=== PATIENT | female | born 2005 | race Caucasian/White ===

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

== ENCOUNTER 2023-05-02 12:49 | Emergency (ER) | payer OTHER, SELFPAY ==
--- OUTSIDE RECORDS SUMMARY | 2023-05-02 12:44 | XMS REPORT | Continuity of Care Document ---
:2005 Author Organization [facility] t Address [address] [facility] [address] [place] [address] Care Team Providers Name Role Phone ZAIDA LARA Primary Care Physician Unavailable ED COLVIN Attending Clinician Unavailable Pob, Adc Lab Main Attending Clinician Unavailable Thalia Lamas MD Attending Clinician THALIA ALMAS Attending Clinician Unavailable ZAIDA LARA Attending Clinician Unavailable Zaida Lara MD Attending Clinician Doctor Unassigned, [place] Attending Clinician Unavailable Steve Colin Attending Clinician Brittany Montelongo Attending Clinician BRITTANY FELIZ Attending Clinician Unavailable Unknown, Attending Attending Clinician Unavailable Afsaneh Tran MD Attending Clinician Destiny Light Attending Clinician EKATERINA PALACIO Attending Clinician Unavailable Ekaterina Palacio MD Attending Clinician Only, Adc Test Attending Clinician Unavailable Ed Colvin MD Attending Clinician STEVE STARKS Attending Clinician Unavailable NAMITA RODRÍGUEZ Attending Clinician Unavailable Namita Rodríguez MD Attending Clinician KYLE GRECO Attending Clinician Unavailable Kyle Pedraza Attending Clinician Nurse, Brenton Kay Attending Clinician Unavailable Akilah Emerson PA-C Attending Clinician Vaccine, Surrency Rahul Attending Clinician Unavailable JOSE DAVIS Attending Clinician Unavailable DESTINY PINZON Attending Clinician Unavailable Nathalie Horne MD Attending Clinician Unavailable KYLE GRECO Admitting Clinician Unavailable Payers Payer Name Policy Type Policy Number Effective Date Expiration Date Gene dan [facility] [id number] 2016 00:00:00 Problems Condition Condition Condition Status Onset Resolution Last Treating Co mments Source Name Details Category Date Date Treatment Clinician Date 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 Formattin g of this note might be different from the original. Added automatic ally from request for surgery [id number] Weakness Weakness Disease Active Unive rs of voice of voice 2 ity of 00:00: [place] 00 Medical Branch Dyspnea Dyspnea Disease Active 2020-08 Univers and and 1-24 ity of respirator [place] Medical abnormalit abnormalit Br [place] y y Family Family Disease Active Univers history of history of 8-06 it y of colon colon 00:00: [place] cancer in cancer in 00 [facility] abdulkadir mother mother Branch Asplenia Asplenia Disease Active Unive rs 8-06 ity of 00:00: 00 Medical Branch Weight Weight Disease Active Univers gain gain 3-03 ity of 00:00: [place] 00 Medical Branch Vaginal Vaginal Disease Active Univers irritation irritation 3-03 it y of 00:00: [place] 00 Medical Branch Chest wall Chest wall Disease Active U nivers asymmetry asymmetry 9-14 ity of 00:00: [place] [facility] Chest wall Chest wall Disease Active U nivers deformity deformity 5-11 ity of 00:00: [place] 00 Medical Branch ADHD ADHD Disease Active Univers (attention (attention 2-23 it y of deficit deficit 00:00: [place] hyperactiv hyperactiv 00 Me dical ity ity Branch disorder) disorder) Surgery, Surgery, Disease Active Unive rs elective elective 4-09 ity of 00:00: [place] 00 Medical Branch Spleen Spleen Disease Active Overview: Univer s laceration laceration 4-10 Form[place] ity of extending extending 00:00: [place] of this [place] into into 00 note Medical parenchyma parenchyma might be Branch w/open w/open different wound into wound into from the cavity cavity original. ICD10 Diagnosis Term Commissioning Manager Utility Laceration Laceration Disease Active Overview : Univers of liver of liver 4-10 Formattin ity of 00:00: g of this [place] 00 note Medical might be Branch different from the original. ICD10 Diagnosis Term Commissioning Manager Utility Acute Acute Disease Active Univers respirator respirator 4-10 it y of y failure y failure 00:[place]: [place] Allergies, Adverse Reactions, Alerts Allergy Allergy Status Severity Reaction(s) Onset Inactive Treating Comm ents Source Name Type Date Date Clinician NO KNOWN Drug Active Univers ALLERGIE Class ity of S [facility] Social History Social Habit Start Date Stop Date Quantity Comments Source History of Passive smoker University of tobacco use [place] [facility] History [facility] University o f Alcohol Comment [place] [facility] ical [facility] History [facility] University o f Alcohol Std [place] [facility] Drinks Branch History [facility] University o f Alcohol Binge [place] [facility] al Branch Exposure to 2022-09-25 2022-10-05 Not sure University of SARS-CoV-2 00:00:00 13:53:00 [facility] (event) Branch Alcohol intake 2022-10-05 2022-10-05 Lifetime University of 00:00:00 00:00:00 non-drinker [place] [facility] (finding) Branch History SDOH 2020-03-03 2020-03-03 1 University o f Alcohol Frequency 00:00:00 00:00:00 [facility] edical Branch Tobacco use and 2017-06-07 2017-06-07 Smokeless tobacco Un iversity of exposure 00:00:00 00:00:00 non-user [facility] Tobacco Comment 2013-09-09 2013-09-09 Guardian smokes Univ ersity of 00:00:00 00:00:00 [facility] Sex Assigned At [birth year] Universit y of 00:00:00 00:00:00 [facility] Smoking Status Start Date Stop Date Source Never smoked tobacco [facility] Medications Ordered Filled Start Stop Current Ordering Indication Dosage Frequency Signature Comments Components Source Medication Medication Date Date Medication? Clinician (SIG) Name Name fluconazole 2022- No [id number] 150mg Take 1 Univers (DIFLUCAN) 10-06- tablet by ity of 150 mg 00:00: 05:59 [place] tablet 00 :00 now for 1 Medical dose. Take Branch on 10/06/22. fluconazole 2022- No [id number] 150mg Take 1 Univers (DIFLUCAN) 10-06 tablet by ity of 150 mg 00:00: 05:59 mouth [place] tablet 00 :00 now for 1 Medical dose. Take Branch on 10/06/22. fluconazole 2022- No [id number] 150mg Take 1 Univers (DIFLUCAN) 10-06 tablet by ity of 150 mg 00:00: 05:59 mouth [place] tablet 00 :00 now for 1 Medical dose. Take Branch on 10/06/22. fluconazole 2022- No [id number] 150mg Take 1 Univers (DIFLUCAN) 10-06 tablet by ity of 150 mg 00:00: 05:59 mouth [place] tablet 00 :00 now for 1 Medical dose. Take Branch on 10/06/22. escitalopra Yes [id number] 20mg Take 1 Univers m oxalate 2-23 tablet by ity o f (LEXAPRO) 00:00: mouth [place] 20 mg 00 the Medical tablet morning. Branch levonorgest Yes [id number] 1{tbl} Take 1 Univers rel-ethinyl 2-23 tablet by ity of estradiol 00:00: [place] ([place] 00 the Medical 0.1-20 morning. Branch mg-mcg per tablet escitalopra 2023-0 Yes [id number] 20mg Take 1 Univers m oxalate 2-23 tablet by ity o f (LEXAPRO) 00:00: mouth [place] 20 mg 00 the Medical tablet morning. Branch levonorgest Yes [id number] 1{tbl} Take 1 Univers rel-ethinyl 2-23 tablet by ity of estradiol 00:00: [place] ([place] the Medical 0.1-20 morning. Branch mg-mcg per tablet escitalopra Yes [id number] 20mg Take 1 Univers m oxalate 2-23 tablet by ity o f (LEXAPRO) 00:00: mouth [place] 20 mg 00 the Medical tablet morning. Branch levonorgest Yes [id number] 1{tbl} Take 1 Univers rel-ethinyl 2-23 tablet by ity of estradiol 00:00: [place] ([place] the Medical 0.1-20 morning. Branch mg-mcg per tablet escitalopra Yes [id number] 20mg Take 1 Univers m oxalate 2-23 tablet by ity o f (LEXAPRO) 00:00: mouth [place] 20 mg 00 the Medical tablet morning. Branch levonorgest Yes [id number] 1{tbl} Take 1 Univers rel-ethinyl 2-23 tablet by ity of estradiol 00:00: [place] ([place] the Medical 0.1-20 morning. Branch mg-mcg per tablet etonogestre 2021-08 No 68mg 68 mg by U nivers L 68 mg 2-21 12-21 Subdermal ity of implant 16:41: 00:00 route once [place] 35 :00 now. Medical Branch etonogestre 2021-08- No 68mg 68 mg by U nivers L 68 mg 2-21 12-21 Subdermal ity of implant 16:41: 00:00 route once [place] 35 :00 now. Medical Branch escitalopra 2021-08 Yes [id number] 10mg Take 1 Univers m oxalate 2-21 tablet by ity o f 10 mg 00:00: mouth in [place] tablet 00 the Medical morning. Branch levonorgest 2021-08 Yes [id number] 1{tbl} Take 1 Univers rel-ethinyl 2-21 tablet by ity of estradiol 00:00: [place] ([place] 00 the Medical 0.1-20 morning. Branch mg-mcg per tablet escitalopra 2021-08 Yes [id number] 10mg Take 1 Univers m oxalate 2-21 tablet by ity o f 10 mg 00:00: mouth in [place] tablet 00 the Medical morning. Branch levonorgest 2021-08 Yes [id number] 1{tbl} Take 1 Univers rel-ethinyl 2-21 tablet by ity of estradiol 00:00: [place] ([place] 00 the Medical 0.1-20 morning. Branch mg-mcg per tablet escitalopra 2021-08 Yes [id number] 10mg Take 1 Univers m oxalate 2-21 tablet by ity o f 10 mg 00:00: mouth in [place] tablet 00 the Medical morning. Branch levonorgest 2021-08 Yes [id number] 1{tbl} Take 1 Univers rel-ethinyl 2-21 tablet by ity of estradiol 00:00: [place] ([place] 00 the Medical 0.-20 morning. Branch mg-mcg per tablet escitalopra 2021-08 Yes [id number] 10mg Take 1 Univers m oxalate 2-21 tablet by ity o f 10 mg 00:00: mouth in [place] tablet 00 the Medical morning. Branch levonorgest 2021-08 Yes [id number] 1{tbl} Take 1 Univers rel-ethinyl 2-21 tablet by ity of estradiol 00:00: [place] ([place] 00 the Medical 0.1-20 morning. Branch mg-mcg per tablet escitalopra 2021-08 Yes [id number] 10mg Take 1 Univers m oxalate 2-21 tablet by ity o f 10 mg 00:00: mouth in [place] tablet 00 the Medical morning. Branch levonorgest 2021-08 Yes [id number] 1{tbl} Take 1 Univers rel-ethinyl 2-21 tablet by ity of estradiol 00:00: mouth [place] ([place] 00 the Medical 0.1-20 morning. Branch mg-mcg per tablet escitalopra 2021-08- No [id number] 10mg Take 1 Univers m oxalate 2-03 10- tablet by ity of 10 mg 00:00: 00:00 mouth in [place] tablet 00 :00 the Medical morning. Branch levonorgest 2021-08- No [id number] 1{tbl} Take 1 Univers rel-ethinyl 2-03 10- tablet by it y of estradiol 00:00: 00:00 mouth in [facility] as (VIENVA) 00 :00 the Medical 0.1-20 morning. Branch mg-mcg per tablet escitalopra 2021-08- No [id number] 10mg Take 1 Univers m oxalate -03 10- tablet by ity of 10 mg 00:00: 00:00 mouth in [place] tablet 00 :00 the Medical morning. Branch levonorgest 2021-08- No [id number] 1{tbl} Take 1 Univers rel-ethinyl 10-03 tablet by it y of estradiol 00:00: 00:00 mouth in [facility] as (VIENVA) 00 :00 the Medical 0.1-20 morning. Branch mg-mcg per tablet escitalopra 2021-08- No [id number] 10mg Take 1 Univers m oxalate 10-03 tablet by ity of 10 mg 00:00: 00:00 mouth in [place] tablet 00 :00 the Medical morning. Branch levonorgest 2021-08- No [id number] 1{tbl} Take 1 Univers rel-ethinyl 10-03 tablet by it y of estradiol 00:00: 00:00 mouth in [facility] as (VIENVA) 00 :00 the Medical 0.1-20 morning. Branch mg-mcg per tablet bromphenira 2021-0 Yes [id number] 5mL Take 5 mL Univers mine-pseudo 4-29 by mouth 4 it y of ephedrine-D 00:00: (four[place] M (BROMFED 00 times Medical DM) 2-30-10 daily as Bran ch mg/5 mL needed for syrup Congestion /Allergies or Cough. bromphenira 2021-0 Yes [id number] 5mL Take 5 mL Univers mine-pseudo 4-29 by mouth 4 it y of ephedrine-D 00:00: (four[place] M (BROMFED 00 times Medical DM) 2-30-10 daily as Bran ch mg/5 mL needed for syrup Congestion /Allergies or Cough. bromphenira 2-0 Yes [id number] 5mL Take 5 mL Univers mine-pseudo 4-29 by mouth 4 it y of ephedrine-D 00:00: (four) [place] M (BROMFED 00 times Medical DM) 2-30-10 daily as Bran ch mg/5 mL needed for syrup Congestion /Allergies or Cough. bromphenira 2021-0 Yes [id number] 5mL Take 5 mL Univers mine-pseudo 4-29 by mouth 4 it y of ephedrine-D 00:00: (four) [place] M (BROMFED 00 times Medical DM) 2-30-10 daily as Bran ch mg/5 mL needed for syrup Congestion /Allergies or Cough. bromphenira 2021-0 Yes [id number] 5mL Take 5 mL Univers mine-pseudo 4-29 by mouth 4 it y of ephedrine-D 00:00: (four) [place] M (BROMFED 00 times Medical DM) 2-30-10 daily as Bran ch mg/5 mL needed for syrup Congestion /Allergies or Cough. bromphenira 2021-0 Yes [id number] 5mL Take 5 mL Univers mine-pseudo 4-29 by mouth 4 it y of ephedrine-D 00:00: (four) [place] M (BROMFED 00 times Medical DM) 2-30-10 daily as Bran ch mg/5 mL needed for syrup Congestion /Allergies or Cough. bromphenira 2-0 Yes [id number] 5mL Take 5 mL Univers mine-pseudo 4-29 by mouth 4 it y of ephedrine-D 00:00: (four) [place] M (BROMFED 00 times Medical DM) 2-30-10 daily as Bran ch mg/5 mL needed for syrup Congestion /Allergies or Cough. bromphenira 2022-0 Yes [id number] 5mL Take 5 mL Univers mine-pseudo 4-29 by mouth 4 it y of ephedrine-D 00:00: (four) [place] M (BROMFED 00 times Medical DM) 2-30-10 daily as Bran ch mg/5 mL needed for syrup Congestion /Allergies or Cough. bromphenira 2022-0 Yes [id number] 5mL Take 5 mL Univers mine-pseudo 4-29 by mouth 4 it y of ephedrine-D 00:00: (four) [place] M (BROMFED 00 times Medical DM) 2-30-10 daily as Bran ch mg/5 mL needed for syrup Congestion /Allergies or Cough. bromphenira 2-0 Yes [id number] 5mL Take 5 mL Univers mine-pseudo 4-29 by mouth 4 it y of ephedrine-D 00:00: (four) [place] M (BROMFED 00 times Medical DM) 2-30-10 daily as Bran ch mg/5 mL needed for syrup Congestion /Allergies or Cough. bromphenira 2021-0 Yes [id number] 5mL Take 5 mL Univers mine-pseudo 4-29 by mouth 4 it y of ephedrine-D 00:00: (four) [place] M (BROMFED 00 times Medical DM) 2-30-10 daily as Bran ch mg/5 mL needed for syrup Congestion /Allergies or Cough. bromphenira 2021-0 Yes [id number] 5mL Take 5 mL Univers mine-pseudo 4-29 by mouth 4 it y of ephedrine-D 00:00: (four) [place] M (BROMFED 00 times Medical DM) 2-30-10 daily as Bran ch mg/5 mL needed for syrup Congestion /Allergies or Cough. bromphenira 2021-0 Yes [id number] 5mL Take 5 mL Univers mine-pseudo 4-29 by mouth 4 it y of ephedrine-D 00:00: (four) [place] M (BROMFED 00 times Medical DM) 2-30-10 daily as Bran ch mg/5 mL needed for syrup Congestion /Allergies or Cough. bromphenira 2-0 Yes [id number] 5mL Take 5 mL Univers mine-pseudo 4-29 by mouth 4 it y of ephedrine-D 00:00: (four) [place] M (BROMFED 00 times Medical DM) 2-30-10 daily as Bran ch mg/5 mL needed for syrup Congestion /Allergies or Cough. bromphenira 2022-0 Yes [id number] 5mL Take 5 mL Univers mine-pseudo 4-29 by mouth 4 it y of ephedrine-D 00:00: (four) [place] M (BROMFED 00 times Medical DM) 2-30-10 daily as Bran ch mg/5 mL needed for syrup Congestion /Allergies or Cough. bromphenira 2-0 Yes [id number] 5mL Take 5 mL Univers mine-pseudo 4-29 by mouth 4 it y of ephedrine-D 00:00: (four) [place] M (BROMFED 00 times Medical DM) 2-30-10 daily as Bran ch mg/5 mL needed for syrup Congestion /Allergies or Cough. bromphenira 2021-0 Yes [id number] 5mL Take 5 mL Univers mine-pseudo 4-29 by mouth 4 it y of ephedrine-D 00:00: (four) [place] M (BROMFED 00 times Medical DM) 2-30-10 daily as Bran ch mg/5 mL needed for syrup Congestion /Allergies or Cough. bromphenira 2021-0 Yes [id number] 5mL Take 5 mL Univers mine-pseudo 4-29 by mouth 4 it y of ephedrine-D 00:00: (four[place] M (BROMFED 00 times Medical DM) 2-30-10 daily as Bran ch mg/5 mL needed for syrup Congestion /Allergies or Cough. bromphenira 2021-0 Yes [id number] 5mL Take 5 mL Univers mine-pseudo 4-29 by mouth 4 it y of ephedrine-D 00:00: (four) [place] M (BROMFED 00 times Medical DM) 2-30-10 daily as Bran ch mg/5 mL needed for syrup Congestion /Allergies or Cough. bromphenira 2021-0 Yes [id number] 5mL Take 5 mL Univers mine-pseudo 4-29 by mouth 4 it y of ephedrine-D 00:00: (four) [place] M (BROMFED 00 times Medical DM) 2-30-10 daily as Bran ch mg/5 mL needed for syrup Congestion /Allergies or Cough. bromphenira 2022-0 Yes [id number] 5mL Take 5 mL Univers mine-pseudo 4-29 by mouth 4 it y of ephedrine-D 00:00: (four) [place] M (BROMFED 00 times Medical DM) 2-30-10 daily as Bran ch mg/5 mL needed for syrup Congestion /Allergies or Cough. bromphenira 2022-0 Yes [id number] 5mL Take 5 mL Univers mine-pseudo 4-29 by mouth 4 it y of ephedrine-D 00:00: (four) [place] M (BROMFED 00 times Medical DM) 2-30-10 daily as Bran ch mg/5 mL needed for syrup Congestion /Allergies or Cough. doxycycline 2021- No [id number] 100mg Take 1 Univers hyclate 100 4-29 05-07 tablet by it y of mg tablet 00:00: 04:59 mouth 2 [place] 00 :00 (two) Medical times Branch daily for 7 days. doxycycline 2021- No [id number] 100mg Take 1 Univers hyclate 100 4-29 05-07 tablet by it y of mg tablet 00:00: 04:59 mouth 2 [place] 00 :00 (two) Medical times Branch daily for 7 days. doxycycline 2021- No [id number] 100mg Take 1 Univers hyclate 100 4-29 05-07 tablet by it y of mg tablet 00:00: 04:59 mouth 2 [place] 00 :00 (two) Medical times Branch daily for 7 days. doxycycline 2021- No [id number] 100mg Take 1 Univers hyclate 100 4-29 05-07 tablet by it y of mg tablet 00:00: 04:59 mouth 2 [place] 00 :00 (two) Medical times Branch daily for 7 days. doxycycline 2021- No [id number] 100mg Take 1 Univers hyclate 100 4-29 05-07 tablet by it y of mg tablet 00:00: 04:59 mouth 2 [place] 00 :00 (two) Medical times Branch daily for 7 days. doxycycline 2021- No [id number] 100mg Take 1 Univers hyclate 100 4-29 05-07 tablet by it y of mg tablet 00:00: 04:59 mouth 2 [place] 00 :00 (two) Medical times Branch daily for 7 days. doxycycline 2021- No [id number] 100mg Take 1 Univers hyclate 100 4-29 05-07 tablet by it y of mg tablet 00:00: 04:59 mouth 2 [place] 00 :00 (two) Medical times Branch daily for 7 days. escitalopra 2022-0 Yes [id number] 10mg Take 1 Univers m oxalate 4-22 tablet by ity o f 10 mg 00:00: mouth [place] tablet 00 daily. Medical Branch escitalopra Yes [id number] 10mg Take 1 Univers m oxalate 4-22 tablet by ity o f 10 mg 00:00: mouth [place] tablet 00 daily. Medical Branch escitalopra Yes [id number] 10mg Take 1 Univers m oxalate 4-22 tablet by ity o f 10 mg 00:00: mouth [place] tablet 00 daily. Medical Branch escitalopra Yes [id number] 10mg Take 1 Univers m oxalate 4-22 tablet by ity o f 10 mg 00:00: mouth [place] tablet 00 daily. Medical Branch escitalopra Yes [id number] 10mg Take 1 Univers m oxalate 4-22 tablet by ity o f 10 mg 00:00: mouth [place] tablet 00 daily. Medical Branch escitalopra Yes [id number] 10mg Take 1 Univers m oxalate 4-22 tablet by ity o f 10 mg 00:00: mouth [place] tablet 00 daily. Medical Branch escitalopra Yes [id number] 10mg Take 1 Univers m oxalate 4-22 tablet by ity o f 10 mg 00:00: mouth [place] tablet 00 daily. Medical Branch escitalopra Yes [id number] 10mg Take 1 Univers m oxalate 4-22 tablet by ity o f 10 mg 00:00: mouth [place] tablet 00 daily. Medical Branch escitalopra Yes [id number] 10mg Take 1 Univers m oxalate 4-22 tablet by ity o f 10 mg 00:00: mouth [place] tablet 00 daily. Medical Branch escitalopra Yes [id number] 10mg Take 1 Univers m oxalate 4-22 tablet by ity o f 10 mg 00:00: mouth [place] tablet 00 daily. Medical Branch escitalopra Yes [id number] 10mg Take 1 Univers m oxalate 4-22 tablet by ity o f 10 mg 00:00: mouth [place] tablet 00 daily. [facility] Branch escitalopra Yes [id number] 10mg Take 1 Univers m oxalate 4-22 tablet by ity o f 10 mg 00:00: mouth [place] tablet 00 daily. [facility] Branch escitalopra 2022-0 Yes [id number] 10mg Take 1 Univers m oxalate 4-22 tablet by ity o f 10 mg 00:00: mouth [place] tablet 00 daily. Medical Branch escitalopra 2021-0 2- No [id number] 10mg Take 1 Univers m oxalate 4-22 12-21 tablet by ity of 10 mg 00:00: 00:00 mouth [place] tablet 00 :00 daily. Medical Branch escitalopra 2021-0 2- No [id number] 10mg Take 1 Univers m oxalate 4-22 12-21 tablet by ity of 10 mg 00:00: 00:00 mouth [place] tablet 00 :00 daily. Medical Branch albuterol 2-0 Yes 2.5mg Inhale 2.5 U nivers 2.5 mg /3 4-21 mg. ity of mL (0.083 00:00: [place] %) 00 Medical nebulizer Branch solution albuterol 2-0 Yes 2.5mg Inhale 2.5 U nivers 2.5 mg /3 4-21 mg. ity of mL (0.083 00:00: [place] %) 00 Medical nebulizer Branch solution albuterol 2-0 Yes 2.5mg Inhale 2.5 U nivers 2.5 mg /3 4-21 mg. ity of mL (0.083 00:00: [place] %) 00 Medical nebulizer Branch solution albuterol 2-0 Yes 2.5mg Inhale 2.5 U nivers 2.5 mg /3 4-21 mg. ity of mL (0.083 00:00: [place] %) 00 Medical nebulizer Branch solution albuterol 2-0 Yes 2.5mg Inhale 2.5 U nivers 2.5 mg /3 4-21 mg. ity of mL (0.083 00:00: [place] %) 00 Medical nebulizer Branch solution albuterol 2-0 Yes 2.5mg Inhale 2.5 U nivers 2.5 mg /3 4-21 mg. ity of mL (0.083 00:00: [place] %) 00 Medical nebulizer Branch solution albuterol 2022-0 Yes 2.5mg Inhale 2.5 U nivers 2.5 mg /3 4-21 mg. ity of mL (0.083 00:00: [place] %) 00 Medical nebulizer Branch solution albuterol 2022-0 Yes 2.5mg Inhale 2.5 U nivers 2.5 mg /3 4-21 mg. ity of mL (0.083 00:00: [place] %) 00 Medical nebulizer Branch solution albuterol 2022-0 Yes 2.5mg Inhale 2.5 U nivers 2.5 mg /3 4-21 mg. ity of mL (0.083 00:00: [place] %) 00 Medical nebulizer Branch solution albuterol 2022-0 Yes 2.5mg Inhale 2.5 U nivers 2.5 mg /3 4-21 mg. ity of mL (0.083 00:00: [place] %) 00 Medical nebulizer Branch solution albuterol 2022-0 Yes 2.5mg Inhale 2.5 U nivers 2.5 mg /3 4-21 mg. ity of mL (0.083 00:00: [place] %) 00 Medical nebulizer Branch solution albuterol 2022-0 Yes 2.5mg Inhale 2.5 U nivers 2.5 mg /3 4-21 mg. ity of mL (0.083 00:00: [place] %) 00 Medical nebulizer Branch solution albuterol 2022-0 Yes 2.5mg Inhale 2.5 U nivers 2.5 mg /3 4-21 mg. ity of mL (0.083 00:00: [place] %) 00 Medical nebulizer Branch solution albuterol 2022-0 Yes 2.5mg Inhale 2.5 U nivers 2.5 mg /3 4-21 mg. ity of mL (0.083 00:00: [place] %) 00 Medical nebulizer Branch solution albuterol 2022-0 Yes 2.5mg Inhale 2.5 U nivers 2.5 mg /3 4-21 mg. ity of mL (0.083 00:00: [place] %) 00 Medical nebulizer Branch solution albuterol 2022-0 Yes 2.5mg Inhale 2.5 U nivers 2.5 mg /3 4-21 mg. ity of mL (0.083 00:00: [place] %) 00 Medical nebulizer Branch solution albuterol 2022-0 Yes 2.5mg Inhale 2.5 U nivers 2.5 mg /3 4-21 mg. ity of mL (0.083 00:00: [place] %) 00 Medical nebulizer Branch solution albuterol 2022-0 Yes 2.5mg Inhale 2.5 U nivers 2.5 mg /3 4-21 mg. ity of mL (0.083 00:00: [place] %) 00 Medical nebulizer Branch solution albuterol 2022-0 Yes 2.5mg Inhale 2.5 U nivers 2.5 mg /3 4-21 mg. ity of mL (0.083 00:00: [place] %) 00 Medical nebulizer Branch solution albuterol 2022-0 Yes 2.5mg Inhale 2.5 U nivers 2.5 mg /3 4-21 mg. ity of mL (0.083 00:00: [place] %) 00 Medical nebulizer Branch solution albuterol 2022-0 Yes 2.5mg Inhale 2.5 U nivers 2.5 mg /3 4-21 mg. ity of mL (0.083 00:00: [place] %) 00 Medical nebulizer Branch solution albuterol 2022-0 Yes 2.5mg Inhale 2.5 U nivers 2.5 mg /3 4-21 mg. ity of mL (0.083 00:00: [place] %) 00 Medical nebulizer Branch solution levonorgest 2-0 Yes [id number] 1{tbl} Take 1 Univers rel-ethinyl 4-08 tablet by ity of estradiol 00:00: mouth (VIENVA) 00 daily. Medical 0.1-20 Branch mg-mcg per tablet levonorgest 2-0 Yes [id number] 1{tbl} Take 1 Univers rel-ethinyl 4-08 tablet by ity of estradiol 00:00: mouth [place] (VIENVA) 00 daily. Medical 0.1-20 Branch mg-mcg per tablet levonorgest 2-0 Yes [id number] 1{tbl} Take 1 Univers rel-ethinyl 4-08 tablet by ity of estradiol 00:00: mouth [place] (VIENVA) 00 daily. Medical 0.1-20 Branch mg-mcg per tablet levonorgest 2-0 Yes [id number] 1{tbl} Take 1 Univers rel-ethinyl 4-08 tablet by ity of estradiol 00:00: mouth [place] (VIENVA) 00 daily. Medical 0.1-20 Branch mg-mcg per tablet levonorgest 2021-0 Yes [id number] 1{tbl} Take 1 Univers rel-ethinyl 4-08 tablet by ity of estradiol 00:00: mouth [place] (VIENVA) 00 daily. Medical 0.1-20 Branch mg-mcg per tablet levonorgest 2021-0 Yes [id number] 1{tbl} Take 1 Univers rel-ethinyl 4-08 tablet by ity of estradiol 00:00: mouth [place] (VIENVA) 00 daily. Medical 0.1-20 Branch mg-mcg per tablet levonorgest 0 Yes [id number] 1{tbl} Take 1 Univers rel-ethinyl 4-08 tablet by ity of estradiol 00:00: mouth [place] (VIENVA) 00 daily. Medical 0.1-20 Branch mg-mcg per tablet levonorgest 2021-0 Yes [id number] 1{tbl} Take 1 Univers rel-ethinyl 4-08 tablet by ity of estradiol 00:00: mouth [place] (VIENVA) 00 daily. Medical 0.1-20 Branch mg-mcg per tablet levonorgest 0 Yes [id number] 1{tbl} Take 1 Univers rel-ethinyl 4-08 tablet by ity of estradiol 00:00: mouth [place] (VIENVA) 00 daily. Medical 0.1-20 Branch mg-mcg per tablet levonorgest 2021-0 Yes [id number] 1{tbl} Take 1 Univers rel-ethinyl 4-08 tablet by ity of estradiol 00:00: mouth [place] (VIENVA) 00 daily. Medical 0.1-20 Branch mg-mcg per tablet levonorgest 2021-0 Yes [id number] 1{tbl} Take 1 Univers rel-ethinyl 4-08 tablet by ity of estradiol 00:00: mouth [place] (VIENVA) 00 daily. Medical 0.1-20 Branch mg-mcg per tablet levonorgest 2021-0 Yes [id number] 1{tbl} Take 1 Univers rel-ethinyl 4-08 tablet by ity of estradiol 00:00: mouth [place] (VIENVA) 00 daily. Medical 0.1-20 Branch mg-mcg per tablet levonorgest 2021-0 Yes [id number] 1{tbl} Take 1 Univers rel-ethinyl 4-08 tablet by ity of estradiol 00:00: mouth [place] (VIENVA) 00 daily. Medical 0.1-20 Branch mg-mcg per tablet levonorgest 2021-0 2021- No [id number] 1{tbl} Take 1 Univers rel-ethinyl 4-08 12-21 tablet by it y of estradiol 00:00: 00:00 mouth [place] (VIENVA) 00 :00 daily. Medical 0.1-20 Branch mg-mcg per tablet levonorgest 2021-0 2021- No [id number] 1{tbl} Take 1 Univers rel-ethinyl 4-08 12-21 tablet by it y of estradiol 00:00: 00:00 mouth [place] (VIENVA) 00 :00 daily. Medical 0.1-20 Branch mg-mcg per tablet ibuprofen 2021-0 Yes [id number] 600mg Take 1 Univers 600 mg 3-06 tablet by ity of tablet 00:00: mouth [place] 00 every 6 Medical (six) Branch hours as needed for Pain (scale 4-6). ibuprofen 2021-0 Yes [id number] 600mg Take 1 Univers 600 mg 3-06 tablet by ity of tablet 00:00: mouth [place] 00 every 6 Medical (six) Branch hours as needed for Pain (scale 4-6). ibuprofen 2021-0 Yes [id number] 600mg Take 1 Univers 600 mg 3-06 tablet by ity of tablet 00:00: mouth [place] 00 every 6 Medical (six) Branch hours as needed for Pain (scale 4-6). ibuprofen 2021-0 Yes [id number] 600mg Take 1 Univers 600 mg 3-06 tablet by ity of tablet 00:00: mouth [place] 00 every 6 Medical (six) Branch hours as needed for Pain (scale 4-6). ibuprofen 2021-0 Yes [id number] 600mg Take 1 Univers 600 mg 3-06 tablet by ity of tablet 00:00: mouth [place] 00 every 6 Medical (six) Branch hours as needed for Pain (scale 4-6). ibuprofen 2022-0 Yes [id number] 600mg Take 1 Univers 600 mg 3-06 tablet by ity of tablet 00:00: mouth [place] 00 every 6 Medical (six) Branch hours as needed for Pain (scale 4-6). ibuprofen 2022-0 Yes [id number] 600mg Take 1 Univers 600 mg 3-06 tablet by ity of tablet 00:00: mouth [place] 00 every 6 Medical (six) Branch hours as needed for Pain (scale 4-6). ibuprofen 2022-0 Yes [id number] 600mg Take 1 Univers 600 mg 3-06 tablet by ity of tablet 00:00: mouth [place] 00 every 6 Medical (six) Branch hours as needed for Pain (scale 4-6). ibuprofen 2022-0 Yes [id number] 600mg Take 1 Univers 600 mg 3-06 tablet by ity of tablet 00:00: mouth [place] 00 every 6 Medical (six) Branch hours as needed for Pain (scale 4-6). ibuprofen 2022-0 Yes [id number] 600mg Take 1 Univers 600 mg 3-06 tablet by ity of tablet 00:00: mouth [place] 00 every 6 Medical (six) Branch hours as needed for Pain (scale 4-6). ibuprofen 2022-0 Yes [id number] 600mg Take 1 Univers 600 mg 3-06 tablet by ity of tablet 00:00: mouth [place] 00 every 6 Medical (six) Branch hours as needed for Pain (scale 4-6). ibuprofen 2022-0 Yes [id number] 600mg Take 1 Univers 600 mg 3-06 tablet by ity of tablet 00:00: mouth [place] 00 every 6 Medical (six) Branch hours as needed for Pain (scale 4-6). ibuprofen 2022-0 Yes [id number] 600mg Take 1 Univers 600 mg 3-06 tablet by ity of tablet 00:00: mouth [place] 00 every 6 Medical (six) Branch hours as needed for Pain (scale 4-6). ibuprofen 2022-0 Yes [id number] 600mg Take 1 Univers 600 mg 3-06 tablet by ity of tablet 00:00: mouth [place] 00 every 6 Medical (six) Branch hours as needed for Pain (scale 4-6). ibuprofen 2022-0 Yes [id number] 600mg Take 1 Univers 600 mg 3-06 tablet by ity of tablet 00:00: mouth [place] 00 every 6 Medical (six) Branch hours as needed for Pain (scale 4-6). ibuprofen 202-0 Yes [id number] 600mg Take 1 Univers 600 mg 3-06 tablet by ity of tablet 00:00: mouth [place] 00 every 6 Medical (six) Branch hours as needed for Pain (scale 4-6). ibuprofen 202-0 Yes [id number] 600mg Take 1 Univers 600 mg 3-06 tablet by ity of tablet 00:00: mouth [place] 00 every 6 Medical (six) Branch hours as needed for Pain (scale 4-6). ibuprofen 2021-0 Yes [id number] 600mg Take 1 Univers 600 mg 3-06 tablet by ity of tablet 00:00: mouth [place] 00 every 6 Medical (six) Branch hours as needed for Pain (scale 4-6). ibuprofen 202-0 Yes [id number] 600mg Take 1 Univers 600 mg 3-06 tablet by ity of tablet 00:00: mouth [place] 00 every 6 Medical (six) Branch hours as needed for Pain (scale 4-6). ibuprofen 2021-0 Yes [id number] 600mg Take 1 Univers 600 mg 3-06 tablet by ity of tablet 00:00: mouth [place] 00 every 6 Medical (six) Branch hours as needed for Pain (scale 4-6). ibuprofen 2021-0 Yes [id number] 600mg Take 1 Univers 600 mg 3-06 tablet by ity of tablet 00:00: mouth [place] 00 every 6 Medical (six) Branch hours as needed for Pain (scale 4-6). ibuprofen 2021-0 Yes [id number] 600mg Take 1 Univers 600 mg 3-06 tablet by ity of tablet 00:00: mouth [place] 00 every 6 Medical (six) Branch hours as needed for Pain (scale 4-6). ibuprofen 2021-0 Yes [id number] 600mg Take 1 Univers 600 mg 3-06 tablet by ity of tablet 00:00: mouth [place] 00 every 6 Medical (six) Branch hours as needed for Pain (scale 4-6). amoxicillin 2021-0 2022- No [id number] 1{tbl} Take 1 Univers -clavulanat 3-03 03-14 tablet by it y of e 00:00: 04:59 mouth 2 [place] (AUGMENTIN) 00 :00 (two) Medical 875-125 mg times Branch per tablet daily for 10 days. levonorgest 2021- No [id number] 1{tbl} Take 1 Univers rel-ethinyl 2-25 04-08 tablet by it y of estradiol 00:00: 00:00 mouth [place] 0.1-20 00 :00 daily. Medical mg-mcg per Branch tablet escitalopra 2021- No [id number] 10mg Take 1 Univers m oxalate 2-21 - tablet by ity of 10 mg 00:00: 00:00 mouth [place] tablet 00 :00 daily. Medical Branch cetirizine 2020-08 Yes 10mg Take 10 mg U nivers 10 mg 2-21 by mouth. ity of tablet 00:00: [place] [facility] fluticasone 2020-08 Yes 50ug Use 50 mcg Univers propionate 2-21 in each ity of 50 00:00: nostril. [place] mcg/actuati Medical on nasal Branch spray cetirizine 2020-08 Yes 10mg Take 10 mg U nivers 10 mg 2-21 by mouth. ity of tablet 00:00: [place] [facility] fluticasone 2020-08 Yes 50ug Use 50 mcg Univers propionate 2-21 in each ity of 50 00:00: nostril. [place] mcg/actuati Medical on nasal Branch spray cetirizine 2020-08 Yes 10mg Take 10 mg U nivers 10 mg 2-21 by mouth. ity of tablet 00:00: [place] [facility] fluticasone 2020-08 Yes 50ug Use 50 mcg Univers propionate 2-21 in each ity of 50 00:00: nostril. [place] mcg/actuati Medical on nasal Branch spray cetirizine 2020-08 Yes 10mg Take 10 mg U nivers 10 mg 2-21 by mouth. ity of tablet 00:00: [place] [facility] fluticasone 2020-08 Yes 50ug Use 50 mcg Univers propionate 2-21 in each ity of 50 00:00: nostril. [place] mcg/actuati Medical on nasal Branch spray cetirizine 2020-08 Yes 10mg Take 10 mg U nivers 10 mg 2-21 by mouth. ity of tablet 00:00: [place] [facility] fluticasone 2021-1 Yes 50ug Use 50 mcg Univers propionate 2-21 in each ity of 50 00:00: nostril. [place] mcg/actuati Medical on nasal Branch spray cetirizine 2020-08 Yes 10mg Take 10 mg U nivers 10 mg 2-21 by mouth. ity of tablet 00:00: [place] [facility] fluticasone 2020-08 Yes 50ug Use 50 mcg Univers propionate 2-21 in each ity of 50 00:00: nostril. [place] mcg/actuati Medical on nasal Branch spray cetirizine 2020-08 Yes 10mg Take 10 mg U nivers 10 mg 2-21 by mouth. ity of tablet 00:00: [place] [facility] fluticasone 2020-08 Yes 50ug Use 50 mcg Univers propionate 2-21 in each ity of 50 00:00: nostril. [place] mcg/actuati Medical on nasal Branch spray cetirizine 2020-08 Yes 10mg Take 10 mg U nivers 10 mg 2-21 by mouth. ity of tablet 00:00: [place] [facility] fluticasone 2020-08 Yes 50ug Use 50 mcg Univers propionate 2-21 in each ity of 50 00:00: nostril. [place] mcg/actuati Medical on nasal Branch spray cetirizine 2020-08 Yes 10mg Take 10 mg U nivers 10 mg 2-21 by mouth. ity of tablet 00:00: [place] [facility] fluticasone 2020-08 Yes 50ug Use 50 mcg Univers propionate 2-21 in each ity of 50 00:00: nostril. [place] mcg/actuati Medical on nasal Branch spray cetirizine 2020-08 Yes 10mg Take 10 mg U nivers 10 mg 2-21 by mouth. ity of tablet 00:00: [place] [facility] fluticasone 2020-08 Yes 50ug Use 50 mcg Univers propionate 2-21 in each ity of 50 00:00: nostril. [place] mcg/actuati Medical on nasal Branch spray cetirizine 2020-08 Yes 10mg Take 10 mg U nivers 10 mg 2-21 by mouth. ity of tablet 00:00: [place] [facility] fluticasone 2020-08 Yes 50ug Use 50 mcg Univers propionate 2-21 in each ity of 50 00:00: nostril. [place] mcg/actuati Medical on nasal Branch spray cetirizine 2020-08 Yes 10mg Take 10 mg U nivers 10 mg 2-21 by mouth. ity of tablet 00:00: [place] [facility] fluticasone 2020-08 Yes 50ug Use 50 mcg Univers propionate 2-21 in each ity of 50 00:00: nostril. [place] mcg/actuati Medical on nasal Branch spray cetirizine 2020-08 Yes 10mg Take 10 mg U nivers 10 mg 2-21 by mouth. ity of tablet 00:00: [place] [facility] fluticasone 2020-08 Yes 50ug Use 50 mcg Univers propionate 2-21 in each ity of 50 00:00: nostril. [place] mcg/actuati Medical on nasal Branch spray cetirizine 2020-08 Yes 10mg Take 10 mg U nivers 10 mg 2-21 by mouth. ity of tablet 00:00: [place] [facility] fluticasone 2020-08 Yes 50ug Use 50 mcg Univers propionate 2-21 in each ity of 50 00:00: nostril. [place] mcg/actuati Medical on nasal Branch spray cetirizine 2020-08 Yes 10mg Take 10 mg U nivers 10 mg 2-21 by mouth. ity of tablet 00:00: [place] [facility] fluticasone 2020-08 Yes 50ug Use 50 mcg Univers propionate 2-21 in each ity of 50 00:00: nostril. [place] mcg/actuati Medical on nasal Branch spray cetirizine 2020-08 Yes 10mg Take 10 mg U nivers 10 mg 2-21 by mouth. ity of tablet 00:00: [place] [facility] fluticasone 2020-08 Yes 50ug Use 50 mcg Univers propionate 2-21 in each ity of 50 00:00: nostril. [place] mcg/actuati Medical on nasal Branch spray cetirizine 2020-08 Yes 10mg Take 10 mg U nivers 10 mg 2-21 by mouth. ity of tablet 00:00: [place] [facility] fluticasone 2020-08 Yes 50ug Use 50 mcg Univers propionate 2-21 in each ity of 50 00:00: nostril. [place] mcg/actuati Medical on nasal Branch spray cetirizine 2020-08 Yes 10mg Take 10 mg U nivers 10 mg 2-21 by mouth. ity of tablet 00:00: [place] [facility] fluticasone 2020-08 Yes 50ug Use 50 mcg Univers propionate 2-21 in each ity of 50 00:00: nostril. [place] mcg/actuati Medical on nasal Branch spray cetirizine 2020-08 Yes 10mg Take 10 mg U nivers 10 mg 2-21 by mouth. ity of tablet 00:00: [place] [facility] fluticasone 2020-08 Yes 50ug Use 50 mcg Univers propionate 2-21 in each ity of 50 00:00: nostril. [place] mcg/actuati Medical on nasal Branch spray cetirizine 2020-08 Yes 10mg Take 10 mg U nivers 10 mg 2-21 by mouth. ity of tablet 00:00: [place] [facility] fluticasone 2020-08 Yes 50ug Use 50 mcg Univers propionate 2-21 in each ity of 50 00:00: nostril. [place] mcg/actuati Medical on nasal Branch spray cetirizine 2020-08 Yes 10mg Take 10 mg U nivers 10 mg 2-21 by mouth. ity of tablet 00:00: [place] [facility] fluticasone 2020-08 Yes 50ug Use 50 mcg Univers propionate 2-21 in each ity of 50 00:00: nostril. [place] mcg/actuati Medical on nasal Branch spray cetirizine 2020-08 Yes 10mg Take 10 mg U nivers 10 mg 2-21 by mouth. ity of tablet 00:00: [place] [facility] fluticasone 2020-08 Yes 50ug Use 50 mcg Univers propionate 2-21 in each ity of 50 00:00: nostril. [place] mcg/actuati Medical on nasal Branch spray cetirizine 2020-08 Yes 10mg Take 10 mg U nivers 10 mg 2-21 by mouth. ity of tablet 00:00: [place] [facility] fluticasone 2020-08 Yes 50ug Use 50 mcg Univers propionate 2-21 in each ity of 50 00:00: nostril. [facility]/actuati Medical on nasal Branch spray albuterol Yes [id number] 2{puff} Inhale 2 Univers 90 8-26 Puffs ity of mcg/actuati 00:00: every 6 [place] as on inhaler 00 (six) Medical hours as Branch needed for Wheezing or Shortness of Breath. albuterol Yes [id number] 2{puff} Inhale 2 Univers 90 8-26 Puffs ity of mcg/actuati 00:00: every 6 [place] as on inhaler 00 (six) Medical hours as Branch needed for Wheezing or Shortness of Breath. albuterol Yes [id number] 2{puff} Inhale 2 Univers 90 8-26 Puffs ity of mcg/actuati 00:00: every 6 [place] as on inhaler 00 (six) Medical hours as Branch needed for Wheezing or Shortness of Breath. albuterol Yes [id number] 2{puff} Inhale 2 Univers 90 8-26 Puffs ity of mcg/actuati 00:00: every 6 [place] as on inhaler 00 (six) Medical hours as Branch needed for Wheezing or Shortness of Breath. albuterol Yes [id number] 2{puff} Inhale 2 Univers 90 8-26 Puffs ity of mcg/actuati 00:00: every 6 [place] as on inhaler 00 (six) Medical hours as Branch needed for Wheezing or Shortness of Breath. albuterol Yes [id number] 2{puff} Inhale 2 Univers 90 8-26 Puffs ity of mcg/actuati 00:00: every 6 [place] as on inhaler 00 (six) Medical hours as Branch needed for Wheezing or Shortness of Breath. albuterol Yes [id number] 2{puff} Inhale 2 Univers 90 8-26 Puffs ity of mcg/actuati 00:00: every 6 [place] as on inhaler 00 (six) Medical hours as Branch needed for Wheezing or Shortness of Breath. albuterol Yes [id number] 2{puff} Inhale 2 Univers 90 8-26 Puffs ity of mcg/actuati 00:00: every 6 [place] as on inhaler 00 (six) Medical hours as Branch needed for Wheezing or Shortness of Breath. albuterol Yes [id number] 2{puff} Inhale 2 Univers 90 8-26 Puffs ity of mcg/actuati 00:00: every 6 [place] as on inhaler 00 (six) Medical hours as Branch needed for Wheezing or Shortness of Breath. albuterol Yes [id number] 2{puff} Inhale 2 Univers 90 8-26 Puffs ity of mcg/actuati 00:00: every 6 [place] as on inhaler 00 (six) Medical hours as Branch needed for Wheezing or Shortness of Breath. albuterol Yes [id number] 2{puff} Inhale 2 Univers 90 8-26 Puffs ity of mcg/actuati 00:00: every 6 [place] as on inhaler 00 (six) Medical hours as Branch needed for Wheezing or Shortness of Breath. albuterol Yes [id number] 2{puff} Inhale 2 Univers 90 8-26 Puffs ity of mcg/actuati 00:00: every 6 [place] as on inhaler 00 (six) Medical hours as Branch needed for Wheezing or Shortness of Breath. albuterol Yes [id number] 2{puff} Inhale 2 Univers 90 8-26 Puffs ity of mcg/actuati 00:00: every 6 [place] as on inhaler 00 (six) Medical hours as Branch needed for Wheezing or Shortness of Breath. albuterol Yes [id number] 2{puff} Inhale 2 Univers 90 8-26 Puffs ity of mcg/actuati 00:00: every 6 [place] as on inhaler 00 (six) Medical hours as Branch needed for Wheezing or Shortness of Breath. albuterol Yes [id number] 2{puff} Inhale 2 Univers 90 8-26 Puffs ity of mcg/actuati 00:00: every 6 [place] as on inhaler 00 (six) Medical hours as Branch needed for Wheezing or Shortness of Breath. albuterol Yes [id number] 2{puff} Inhale 2 Univers 90 8-26 Puffs ity of mcg/actuati 00:00: every 6 [place] as on inhaler 00 (six) Medical hours as Branch needed for Wheezing or Shortness of Breath. albuterol Yes [id number] 2{puff} Inhale 2 Univers 90 8-26 Puffs ity of mcg/actuati 00:00: every 6 [place] as on inhaler 00 (six) Medical hours as Branch needed for Wheezing or Shortness of Breath. albuterol Yes [id number] 2{puff} Inhale 2 Univers 90 8-26 Puffs ity of mcg/actuati 00:00: every 6 [place] as on inhaler 00 (six) Medical hours as Branch needed for Wheezing or Shortness of Breath. albuterol Yes [id number] 2{puff} Inhale 2 Univers 90 8-26 Puffs ity of mcg/actuati 00:00: every 6 [place] as on inhaler 00 (six) Medical hours as Branch needed for Wheezing or Shortness of Breath. albuterol Yes [id number] 2{puff} Inhale 2 Univers 90 8-26 Puffs ity of mcg/actuati 00:00: every 6 [place] as on inhaler 00 (six) Medical hours as Branch needed for Wheezing or Shortness of Breath. albuterol Yes [id number] 2{puff} Inhale 2 Univers 90 8-26 Puffs ity of mcg/actuati 00:00: every 6 [place] as on inhaler 00 (six) Medical hours as Branch needed for Wheezing or Shortness of Breath. albuterol Yes [id number] 2{puff} Inhale 2 Univers 90 8-26 Puffs ity of mcg/actuati 00:00: every 6 [place] as on inhaler 00 (six) Medical hours as Branch needed for Wheezing or Shortness of Breath. albuterol Yes [id number] 2{puff} Inhale 2 Univers 90 8-26 Puffs ity of mcg/actuati 00:00: every 6 [place] as on inhaler 00 (six) Medical hours as Branch needed for Wheezing or Shortness of Breath. etonogestre 2019-08 Yes 68mg 68 mg by Un bryanna L 68 mg 1-12 Subdermal ity of [place] 13:47: route [place] 22 now. Medical Branch etonogestre 2019-08 Yes 68mg 68 mg by Un b[place] L 68 mg 1-12 Subdermal ity of implant 13:47: route once [place] 22 now. Medical Branch etonogestre 2019-08 Yes 68mg 68 mg by Un b[place] L 68 mg 1-12 Subdermal ity of implant 13:47: route once [place] 22 now. Medical Branch etonogestre 2019-08 Yes 68mg 68 mg by Un [place] L 68 mg 1-12 Subdermal ity of implant 13:47: route once [place] 22 now. Medical Branch etonogestre 2019-08 Yes 68mg 68 mg by Un [place] L 68 mg 1-12 Subdermal ity of implant 13:47: route once [place] 22 now. Medical Branch etonogestre 2019-08 Yes 68mg 68 mg by Un [place] L 68 mg 1-12 Subdermal ity of implant 13:47: route once [place] 22 now. Medical Branch etonogestre 2019-08 Yes 68mg 68 mg by Un [place] 68 mg 1-12 Subdermal ity of implant 13:47: route once [place] 22 now. Medical Branch etonogestre 2019-08 Yes 68mg 68 mg by Un [place] 68 mg 1-12 Subdermal ity of implant 13:47: route once [place] 22 now. Medical Branch etonogestre 2019-08 Yes 68mg 68 mg by Un [place] 68 mg 1-12 Subdermal ity of implant 13:47: route once [place] 22 now. Medical Branch etonogestre 2019-08 Yes 68mg 68 mg by Un [place] 68 mg 1-12 Subdermal ity of implant 13:47: route once [place] 22 now. Medical Branch etonogestre 2019-08 Yes 68mg 68 mg by Un [place] 68 mg 1-12 Subdermal ity of implant 13:47: route once [place] 22 now. Medical Branch etonogestre 2019-08 Yes 68mg 68 mg by Un [place] 68 mg 1-12 Subdermal ity of implant 13:47: route once [place] 22 now. Medical Branch etonogestre 2019-08 Yes 68mg 68 mg by Un [place] L 68 mg 1-12 Subdermal ity of implant 13:47: route once [place] 22 now. Medical Branch etonogestre 2019-08 Yes 68mg 68 mg by Un [place] L 68 mg 1-12 Subdermal ity of implant 13:47: route once [place] 22 now. Medical Branch Vital Signs Vital Name Observation Time Observation Value Comments Source Systolic blood 2022-10-05 20:02:00 122 mm[Hg] Univer sity of pressure [place] [facility] Diastolic blood 2022-10-05 20:02:00 79 mm[Hg] Unive rsity of pressure [place] [facility] Heart rate 2022-10-05 20:02:00 66 /min [facility] [place] [facility] [place] Body temperature 2022-10-05 20:02:00 36.67 [place] Univ ersity of [place] [facility] Respiratory rate 2022-10-05 20:02:00 18 /min Univ ersity of [place] [facility] Body weight 2022-10-05 20:02:00 81.149 kg Universi ty of [facility] Oxygen saturation in 2022-10-05 20:02:00 99 /min University of Arterial blood by [place] [facility] Pulse oximetry Branch Systolic blood 2022-08-02 22:18:00 120 mm[Hg] Univer sity of pressure [place] [facility] Diastolic blood 2022-08-02 22:18:00 80 mm[Hg] Unive rsity of pressure [facility] Heart rate 2022-08-02 22:18:00 66 /min [facility]i ty [facility] [place] [facility] [place] Body temperature 2022-08-02 22:18:00 37.06 [place] Univ ersity of [place] [facility] Body height 2022-08-02 22:18:00 158.8 cm Universi ty of [place] [facility] Body weight 2022-08-02 22:18:00 82.146 kg Universi ty of [place] [facility] BMI 2022-08-02 22:18:00 32.60 kg/m2 Universi ty of [facility] Body mass index 2022-08-02 22:18:00 96.30 % Unive rsity of (BMI) [Percentile] [place] [facility] ical Per age and sex Branch Oxygen saturation in 2022-08-02 22:18:00 98 /min University of Arterial blood by [place] [facility] abdulkadir Pulse oximetry Branch Systolic blood 2021-12-09 14:43:00 118 mm[Hg] Univer sity of pressure [place] [facility] Diastolic blood 2021-12-09 14:43:00 80 mm[Hg] Unive rsity of pressure [place] [facility] Heart rate 2021-12-09 14:43:00 92 /min Universi ty of [place] [facility] Body temperature 2021-12-09 14:43:00 37.06 [place] Univ ersity of [place] [facility] Respiratory rate 2021-12-09 14:43:00 20 /min Univ ersity of [place] [facility] Body height 2021-12-09 14:43:00 158.8 cm [facility]i ty of [place] [facility] [place] Body weight 2021-12-09 14:43:00 82.555 kg Universi ty of [facility] Branch BMI 2021-12-09 14:43:00 32.76 kg/m2 Universi ty of [facility] Body mass index 2021-12-09 14:43:00 96.73 % Unive rsity of (BMI) [Percentile] [place] Med ical Per age and sex Branch Oxygen saturation in 2021-12-09 14:43:00 98 /min University of Arterial blood by [place] [facility]ir Pulse oximetry Branch Systolic blood 2021-10-20 19:38:00 122 mm[Hg] Univer sity of pressure [facility] Diastolic blood 2021-10-20 19:38:00 74 mm[Hg] Unive rsity of pressure [facility] Heart rate 2021-10-20 19:38:00 86 /min [facility] [place] [facility] [place] Body height 2021-10-20 19:38:00 157.5 cm Universi ty of [place] [facility] Body weight 2021-10-20 19:38:00 81.194 kg Universi ty of [facility] BMI 2021-10-20 19:38:00 32.74 kg/m2 Universi ty of [facility] Body mass index 2021-10-20 19:38:00 96.79 % Unive rsity of (BMI) [Percentile] [place] Med ical Per age and sex Branch Oxygen saturation in 2021-10-20 19:38:00 97 /min University of Arterial blood by [place] [facility] Pulse oximetry Branch Procedures Procedure Date / Time Performed Performing Clinician Sourc e POCT GLUCOSE 2022-10-05 20:43:00 Zaida Lara [place] (AUTOMATED) [facility] PATIENT FINANCIAL 2022-10-05 19:54:28 Doctor Unassigned, No [facility] POLICY Name Medical Branch POCT URINALYSIS 2022-10-05 00:00:00 Zaida Lara o f [facility] ASSIGNMENT OF BENEFITS 2022-08-02 22:04:48 Doctor Unassigned, No [facility] Name [facility] Branch POCT TEST 2022-08-02 00:00[facility] 2022-05-25 05:01:00 Doctor Unassigned, No [facility] Name Medical Branch EXTERNAL PROVIDER 2021-12-20 05:01:00 Doctor Unassigned, No Univ ersity of [place] RECORDS Name [facility] Branch XR CHEST 2 VW 2021-12-09 15:36:00 Brittany Feliz [facility] Encounters Start End Encounter Admission Attending Care Care Encounter Source Date/Time Date/Time Type Type Clinicians Facility Department ID 2021-06-13 Emergency [facility] [id number] Univers 10:38:23 [facility] 2022-12-22 2022-12-22 Outpatient R ED COLVIN [facility] [id number] Univers 14:00:00 14:00:00 [facility] 2022-12-22 2022-12-22 Outpatient R ED COLVIN [facility] [id number] Univers [facility]-12-22 Outpatient R ED COLVIN [facility] [id number] Univers 14:00:00 14:00:00 [facility] 2022-12-22 2022-12-22 Outpatient R ED COLVIN [facility] [id number] Univers 14:00:00 14:00:00 [facility] 2022-12-22 2022-12-22 Outpatient R ED COLVIN [facility] [id number] Univers 14:00:00 14:00:00 [facility] 2022-10-06 2022-10-06 Statistics Manager Isha, [facility] [id number] Univers 10:15:00 10:30:00 Visit Thalia Lamas [id number] [facility] [id number] Malika BARNES [id number] Ms dical [address] 2022-10-06 2022-10-06 [facility] [id number] Univers 10:15:00 10:15:00 THALIA ity of [facility] 2022-10-05 2022-10-05 Outpatient R ZAIDA L[place] [facility] [id number] Univers 14:00:00 14:58:27 ity of [facility] 2022-10-05 2022-10-05 Office Zaiad Lara [facility] 1.2.840.114 [id number] Univers 14:00:00 14:58:27 Visit RYAN 350.1.13.10 it [place] [id number] [facility] [address] 2022-10-05 2022-10-05 Orders Doctor GISELA 1.2.840.114 [id number] Univers 00:00:00 00:00:00 Only Unassigned, FABRICE 350.1.13.10 ity of [place] [facility] 4.2.7.2.686 [place] [id number] [place] [address] [address] 2022-09-20 2022-09-20 Patient Zaida Lara [facility] 1.2.840.114 [id number] Univers 00:00:00 00:00:00 Secure Msg RYAN 350.1.13.10 [place] [id number] [address] 2022-08-03 2022-08-03 Patient Zaida Lara [facility] 1.2.840.114 [id number] Univers 00:00:00 00:00:00 Secure Msg RYAN 350.1.13.10 [place] [id number] [address] 2022-08-02 2022-08-02 Outpatient R ZAIDA LARA [facility] [id number] Univers 16:00:00 16:41:19 ity of [facility] 2022-08-02 2022-08-02 Office Zaida Lara [facility] 1.2.840.114 99 [id number] Univers 16:00:00 16:41:19 Visit RYAN 350.1.13.10 it [place] [phone] [address] 2022-08-02 2022-08-02 Orders Doctor GISELA 1.2.840.114 [id number] Univers 00:00:00 00:00:00 Only Unassigned, FABRICE 350.1.13.10 ity of [place] [facility] 4.2.7.2.686 [place] [phone] [address] 2022-08-02 2022-08-02 Letter Marco [facility] 1.2.840.114 99 [id number] Univers 00:00:00 00:00:00 (Out) RYAN 350.1.13.10 it y of PEDIATRIC 4.[address] [facility] [phone] [address] 2022-08-02 2022-08-02 Letter Marco [facility] 1.2.840.114 [id number] Univers 00:00:00 00:00:00 (Out) RYAN 350.1.13.10 it y of PEDIATRIC 4.[address].7.[address] [facility] [id number] [address] 2022-05-25 2022-05-25 Telephone [facility] 1.2.757.326 [id number] Univers 00:00:00 00:00:00 [facility] 350.1.13.10 it y of [place] 4.2.7.2.686 [place] JAX?BLEA [phone] [address] MEDICAL OFFICE BUILDING 2022-05-25 2022-05-25 Orders Doctor GISELA 1.2.840.114 [id number] Univers 00:00:00 00:00:00 Only Unassigned, FABRICE 350.1.13.10 ity of [place] [facility] 4.2.7.2.686 [place] [id number] [address] 2021-12-20 2021-12-20 Orders Doctor GISELA 1.2.840.114 [id number] Univers 00:00:00 00:00:00 Only Unassigned, FABRICE 350.1.13.10 ity of [place] [facility] 4.2.7.2.686 [place] [phone] [address] 2021-12-15 2021-12-15 Telephone [facility] 1.2.840.114 [id number] Univers 00:00:00 00:00:00 HEALTH 350.1.13.10 i ty of [place] 4.2.7.2.686 [place] JAX?BLEA [phone] Me dicnathaly FISHER 0[address] [facility] OFFICE [facility] 2021-12-13 2021-12-13 Telephone [facility] 1.2.840.114 [id number] Univers 00:00:00 00:00:00 HEALTH 350.1.13.10 i ty of [place] 4.2.7.2.686 [place] JAX?BLEA [id number] Ms dicnathaly FISHER [address] [facility] 2021-12-12 2021-12-12 Patient [facility] 1.2.840.114 [id number] Univers 00:00:00 00:00:00 Secure Msg [facility] 350.1.13.10 ity of [place] 4.2.7.2.686 [place] JAX?BLEA [id number] Ms simon FISHER [address] [facility] 2021-12-12 2021-12-12 Patient Zaida Lara [facility] 1.2.840.114 [id number] Univers 00:00:00 00:00:00 Secure Msg RYAN 350.1.13.10 [place] [id number] [address] 2021-12-09 2021-12-09 [facility] [id number] Univers 10:06:32 23:59:00 BRITTANY winslow o f [facility] 2021-12-09 2021-12-09 Hospital [facility] 12.383.208 [id number] Univers 10:06:32 23:59:00 Encounter HEALTH 350.1.13.10 ity of [place] 4.2.7.2.686 [place] JAX?BLEA [id number] Ms dicnathaly FISHER 808 [facility] OFFICE [facility] 2021-12-09 2021-12-09 Urgent Brittany Feliz [facility] 1.2.840. 114 [id number] Univers 09:20:00 10:31:22 Care Unknown, [facility] 350.1.13.10 ity of Afsaneh Tran 4.2.7.2.686 [place] JAX?BLEA [phone] [address] MEDICAL OFFICE BUILDING 2021-12-09 2021-12-09 [facility] [id number] Univers 10:06:32 10:06:32 ity o f [facility] 2021-12-09 2021-12-09 Telephone [facility] 1.2.840.114 [id number] Univers 00:00:00 00:00:00 [facility] 350.1.13.10 i ty of [place] 4.2.7.2.686 [place] JAX?BLEA [phone] [address] MEDICAL OFFICE [facility] 2021-12-02 2021-12-02 Outpatient R MARCOZAIDA RICO [facility] [id number] Univers 13:00:00 13:33:07 ity of [facility] 2021-12-02 2021-12-02 Office Marco [facility] 1.2.840.114 [id number] Univers 13:00:00 13:33:07 Visit [place] 350.1.13.10 it [place] [id number] [address] 2021-12-02 2021-12-02 Letter Marco [facility] 1.2.840.114 [id number] Univers 00:00:00 00:00:00 (Out) RYAN 350.1.13.10 it [place] [id number] [address] 2021-11-30 2021-11-30 Telephone Zaida Lara [facility] 1.2.840.114 [id number] Univers 00:00:00 00:00:00 RYAN 350.1.13.10 it [place] [id number] [address] 2021-11-29 2021-11-29 Patient Liban [facility] 1.2.840.114 [id number] Univers 00:00:00 00:00:00 Secure Msg Destiny DAVIS 350.1.13.10 ity of PEDIATRIC 4.2.7.2.686 [facility] [phone] [facility] [address] 2021-11-28 2021-11-28 Outpatient R PIA [facility] [id number] Univers 15:07:02 23:59:00 EKATERINA ity [facility] 2021-11-28 2021-11-28 [facility] 1.2.840.114 [id number] Univers 15:07:02 23:59:00 Encounter Ekaterina Calderon DOMONIQUE 350.1.13.10 [place] [phone] [facility] [address] 2021-11-28 2021-11-28 Laboratory Only, Adc Test [facility] 1.2.840. 114 [id number] Univers 16:30:00 16:45:00 Only Destiny Louie 350.1.13. 10 [facility] [place].2.[place] [phone] [facility] [address] 2021-11-18 2021-11-18 Office Camille Colvinn [facility] 1.2.840.114 [id number] Univers 14:00:00 15:04:41 Visit MAILEFRITZ 350.1.13.10 i ty of [place].2.[place] [facility] [phone] Ms dical NAL [address] BUILDING 2021-11-18 2021-11-18 Outpatient R CAMILLE COLVINN [facility] [id number] Univers 14:00:00 15:04:41 ity [facility] 2021-11-18 2021-11-18 Outpatient R CAMILLE COLVINN [facility] [id number] Univers 14:00:00 14:00:00 ity [facility] 2021-11-18 2021-11-18 Orders Doctor HIGGINS 1.2.840.114 [id number] Univers 00:00:00 00:00:00 Only Unassigned, FABRICE 350.1.13.10 ity of [place] [facility] 4.2.7.2.686 [place] [phone] [address] 2021-11-11 2021-11-11 Telephone [facility] 1.2.942.047 [id number] Univers 00:00:00 00:00:00 Steve S HEALTH 350.1.13.10 it y of [place] 4.2.7.2.686 [place] JAX?BLEA [id number] Ms simon FISHER [address] MEDICAL OFFICE [facility] 2021-11-02 2021-11-02 Telephone [facility] 1.2.032.287 [id number] Univers 00:00:00 00:00:00 Steve S HEALTH 350.1.13.10 it y of [place] 4.2.7.2.686 [place] JAX?BLEA [phone] Ms simon FISHER [address] [facility] OFFICE [facility] 2021-11-02 2021-11-02 Telephone [facility] 1.2.151.929 [id number] Univers 00:00:00 00:00:00 Steve S HEALTH 350.1.13.10 it y of [place] 4.2.7.2.686 [place] JAX?BLEA [phone] Ms simon FISHER [address] [facility] OFFICE [facility] 2021-11-02 2021-11-02 Telephone [facility] 1.2.388.312 [id number] Univers 00:00:00 00:00:00 Steve S HEALTH 350.1.13.10 it y of [place] 4.2.7.2.686 [place] JAX?BLEA [phone] Ms simon FISHER [address] [place] [address] OFFICE [facility] 2021-11-02 2021-11-02 Orders Doctor GISELA 1.2.840.114 [id number] Univers 00:00:00 00:00:00 Only Unassigned, FABRICE 350.1.13.10 ity of [place] [facility] 4.2.7.2.686 [place] [phone] [address] 2021-10-24 2021-10-24 Telephone [facility] 1.2.279.532 [id number] Univers 00:00:00 00:00:00 Steve Martin HEALTH 350.1.13.10 it y of [place] 4.2.7.2.686 [place] JAX?BLEA [phone] Me simon FISHER [address] [facility] OFFICE [facility] 2021-10-20 2021-10-21 Outpatient [facility] [id number] Univers 13:30:00 17:22:39 STEVE [facility] 2021-10-20 2021-10-21 Office [facility] 1.2.840.114 [id number] Univers 13:30:00 17:22:39 Visit Steve S HEALTH 350.1.13.10 it y of [place] 4.2.7.2.686 [place] AJX?BLEA [phone] Ms simon FISHER [address] [place] [address] 2021-10-21 2021-10-21 Telephone [facility] 1..840.114 [id number] Univers 00:00:00 00:00:00 Ekaterina L HEALTH 350.1.13.10 it y of [place] 4.2.7.2.686 [place] JAX?BLEA [id number] Ms simon FISHER 198 [facility] 2021-10-21 2021-10-21 Rock [facility] 1.2.840.114 [id number] Univers 00:00:00 00:00:00 (Out) Steve Martin HEALTH 350.1.13.10 it y of [place] 4.2.7.2.686 [place] JAX?BLEA [phone] Ms simon FISHER 198 [facility] OFFICE [facility] 2021-10-20 2021-10-20 Outpatient [facility] [id number] Univers 13:30:00 13:30:00 [facility] 2021-10-20 2021-10-20 Letter [facility] 1.2.111.908 [id number] Univers 00:00:00 00:00:00 (Out) Ekaterina L HEALTH 350.1.13.10 it y of [place] 4.2.7.2.686 [place] JAX?BLEA [phone] Ms simon FISHER [address] [place] [address] OFFICE [facility] 2021-10-20 2021-10-20 Telephone [facility] 1.2.225.968 [id number] Univers 00:00:00 00:00:00 [facility] 350.1.13.10 it y of [place] 4.2.7.2.686 [place] JAX?BLEA [phone] Ms simon FISHER [address] [place] [address] 2021-10-17 2021-10-17 Outpatient [facility] [id number] Univers 10:20:00 11:16:54 [facility] 2021-10-17 2021-10-17 [facility] 1.2.840.114 [id number] Univers 10:20:00 11:16:54 Visit Namita DAVIS 350.1.13.10 ity of [facility] 4.2.7.2.[address] [facility] [phone] [facility] [address] 2021-10-17 2021-10-17 [facility] [id number] Univers 10:20:00 10:20:00 [facility] 2021-10-17 2021-10-17 [facility] [id number] Univers 10:20:00 10:20:00 [facility] 2021-10-17 2021-10-17 [facility] [id number] Univers 10:20:00 10:20:00 [facility] 2021-10-15 2021-10-16 Emergency X VANESSA, [facility] ERT [id number] Univers 23:13:00 02:07:00 KYLE [facility] 2021-10-15 2021-10-16 Emergency [facility] 1.2.840.114 [id number] Univers 23:13:00 02:07:[address] [facility] 350.1.13.10 [place].2.[place] [facility] [phone] [facility] [address] 2021-10-15 2021-10-16 Emergency X [facility] ERT [id number] Univers 23:13:00 02:07:00 IKEJAVIER [facility] 2021-10-13 2021-10-13 Office Marcos [facility] 1.2.840.114 [id number] Univers 09:20:00 10:13:19 Visit Namita DAVIS 350.1.13.10 it[place] [phone] [address] 2021-10-13 2021-10-13 Out[facility] [id number] Univers 09:20:00 10:13:19 NAMITA [facility] 2021-10-13 2021-10-13 Outpatient [facility] [id number] Univers 09:20:00 09:20:00 NAMITA [facility] 2021-10-13 2021-10-13 [facility] 1.2.840.114 [id number] Univers 00:00:00 00:00:00 (Out) Namita DAVIS 350.1.13.10 it[place] [id number] [address] 2021-10-07 2021-10-07 Office ViniciusCamillen [facility] 1.2.840.114 [id number] Univers 15:00:00 15:43:26 Visit DOMONIQUE 350.1.13.10 i ty of [place] 4.2.7.2.686 Malika martin PROFESSIO [phone] Ms dical [address] 2021-10-07 2021-10-07 Outpatient R ED COLVIN [facility] [id number] Univers 15:00:00 15:43:26 ity [facility] 2021-10-07 2021-10-07 Outpatient R VINICIUS ED [facility] [id number] Univers 15:00:00 15:00:00 ity [facility] 2021-10-03 2021-10-03 Patient Marcos [facility] 1.2.840.114 [id number] Univers 00:00:00 00:00:00 Secure Msg Namita DAVIS 350.1.13.10 it[place] [phone] [address] 2021-10-03 2021-10-03 Patient [facility] 1.2.840.114 [id number] Univers 00:00:00 00:00:00 Secure Msg Namita DAVIS 350.1.13.10 it[place] [id number] [address] 2021-09-22 2021-09-22 Telephone [facility] 1.2.840.114 [id number] Univers 00:00:00 00:00:00 Namita DAVIS 350.1.13.10 [place] [id number] [address] 2021-09-20 2021-09-20 Telephone [facility] 1.2.840.114 [id number] Univers 00:00:00 00:00:00 aNmita DAVIS 350.1.13.10 it[place] [id number] [address] 2021-09-19 2021-09-19 Office [place] [address].2.840.114 [id number] [id number] Univers 09:20:00 10:14:43 Visit Namita DAVIS 350.1.13.10 it[place] [id number] [address] 2021-09-19 2021-09-19 [facility] [id number] Univers 09:20:00 10:14:43 NAMITA winslow of [facility] 2021-09-19 2021-09-[address]840.114 [id number] [id number] Univers 00:00:00 00:00:00 (Out) Namita DAVIS 350.1.13.10 it[place] [id number] [address] 2021-09-19 2021-09-19 Orders Doctor GISELA 1.2.840.114 [id number] Univers 00:00:00 00:00:00 Only Unassigned, FABRICE 350.1.13.10 ity of [place] [facility] 4.2.7.2.686 [place] [phone] [facility] [address] 2021-09-15 2021-09-15 Outpatient R [facility] [id number] Univers 08:20:00 08:20:00 NAMITA winslow [facility] 2021-09-07 2021-09-07 Orders Doctor GISELA 1.2.840.114 [id number] Univers 00:00:00 00:00:00 Only Unassigned, FABRICE 350.1.13.10 ity of [place] [facility] 4.2.7.2.686 [place] [id number] [address] 2021-08-30 2021-08-30 Telephone [facility] 1.2.840.114 [id number] Univers 00:00:00 00:00:00 Namita MILLER 350.1.13.10 [place] [id number] Ms dical AND ADULT [address] [facility] 2021-08-26 2021-08-26 Telephone [facility] [place] 1.2.840.114 [id number] Univers 00:00:00 00:00:00 Namita DAVIS 350.1.13.10 [place] [id number] [address] 2021-08-25 2021-08-25 Outpatient R [facility] [id number] Univers 15:40:00 16:23:59 NAMITA winslow [facility] 2021-08-25 2021-08-25 Office [facility] 1.2.840.114 [id number] Univers 15:40:00 16:23:59 Visit Namita DAVIS 350.1.13.10 [place] [id number] [address] 2021-08-25 2021-08-25 Outpatient R MARCOS [facility] [id number] Univers 15:40:00 16:23:59 NAMITA [facility] 2021-08-15 2021-08-15 Out[facility] [id number] Univers 15:40:00 15:40:00 NAMITA ity [facility] 2021-04-25 2021-04-25 Telephone de [facility] 1.2.840.114 [id number] Univers 00:00:00 00:00:00 Ryan Jc 350.1.13.10 ity of [place] [facility] [place] [id number] [facility] [address] 2021-04-22 2021-04-22 Orders Doctor GISELA 1.2.840.114 [id number] Univers 00:00:00 00:00:00 Only Unassigned, FABRICE 350.1.13.10 ity of [place] [facility] 4.2.7.2.686 [place] [id number] [place] [address] [address] 2021-04-20 2021-04-20 Nurse Nurse, Brenton Kay [facility] 1.2.840. 114 [id number] Univers 09:59:33 10:43:40 Visit Akilah Emerson 350.1.13.10 [place] [phone] [facility] [address] 2021-04-20 2021-04-20 Outpatient R [facility] [id number] Univers 10:40:00 10:40:00 ity of [facility] 2021-04-20 2021-04-20 Letter Regi [facility] 1.2.840.114 [id number] Univers 00:00:00 00:00:00 (Out) Ever Davis 350.1.13.10 it y of [place] [facility] [place] [facility] [phone] [facility] [address] 2021-04-20 2021-04-20 Telephone Marcos [facility] 1.2.840.114 [id number] Univers 00:00:00 00:00:00 Namita Davis 350.1.13.10 [place] [id number] [address] 2021-04-08 2021-04-08 Outpatient R [facility] [id number] Univers 10:20:00 10:20:00 ity of [facility] 2021-04-08 2021-04-08 Imm[facility]Inj [facility] 1.2.840.114 [id number] Univers 09:47:55 09:57:55 Visit Akilah Emerson 350.1.13.10 [place] [id number] [address] 2021-04-08 2021-04-08 Letter de [facility] 1.2.195.289 [id number] Univers 00:00:00 00:00:00 (Out) Ryan Jc 350.1.13.10 ity [place] [facility] [place] [phone] [address] 2021-04-07 2021-04-07 [facility] 1.2.840.114 [id number] Univers 00:00:00 00:00:00 Secure Msg Namita Davis 350.1.13.10 [place] [phone] [address] 2021-04-06 2021-04-06 [facility] 1.2.840.114 [id number] Univers 00:00:00 00:00:00 Secure Msg Namita Davis 350.1.13.10 [place] [phone] [address] 2021-03-21 2021-03-21 [facility] [id number] Univers 13:00:00 13:00:00 JOSE ity of [facility] 2021-03-18 2021-03-18 [facility] [id number] Univers 14:00:00 14:00:00 NAMITA [facility] 2020-10-12 2020-10-12 Outpatient R ED COLVIN [facility] [id number] Univers 13:30:00 13:30:00 [facility] 2020-06-24 2020-06-24 Outpatient R ED COLVIN [facility] [id number] Univers 13:45:00 13:45:00 [facility] 2020-04-14 2020-04-14 Outpatient R ADUM, [facility] [id number] Univers 10:00:00 10:00:00 JOSE [facility] 2020-04-14 2020-04-14 Outpatient R ADUM, [facility] [id number] Univers 09:00:00 09:00:00 [facility] 2020-03-17 2020-03-17 Outpatient R ADUM, [facility] [id number] Univers 15:30:00 15:30:00 [facility] 2020-03-12 2020-03-12 Outpatient R ADUM, [facility] [id number] Univers 13:30:00 13:30:00 [facility] 2020-03-03 2020-03-03 Outpatient R ADUM, [facility] [id number] Univers 09:15:00 09:15:00 [facility] 2019-12-30 2019-12-30 Outpatient R DE [facility] [id number] Univers 09:00:00 09:00:00 nayla JC [facility] 2019-10-28 2019-10-28 [facility] 1.2.840.114 [id number] 00:00:00 00:00:00 Nathalie Hester 350.1.13.10 Pediatric 4.2.7.2.686 [facility] [id number] 225 2019-10-13 2019-10-13 Outpatient R DE [facility] [id number] Univers 13:40:00 13:40:00 nayla JC [facility] Results Test Description Test Time Test Comments Results Result Comments Source POCT GLUCOSE (AUTOMATED) 2022-10-05 20:45:54 Test Item Value Reference Range Interpretation Comme nts POCT GLU (test code = 6299260763) 91 mg/dL 70-110 Lab Interpretation (test code = 74620-6) Normal [facility] GLUCOSE (AUTOMATED)2022-10-05 20:45:54 Test Item Value Reference Range Interpretation Comments POCT GLU (test code = 5919131940) 91 mg/dL 70-110 Lab Interpretation (test code = Normal 92546-0) [facility] GLUCOSE (AUTOMATED)2022-10-05 20:45:54 Test Item Value Reference Range Interpretation Comments POCT GLU (test code = 7406080264) 91 mg/dL 70-110 Lab Interpretation (test code = Normal 97904-2) [facility] URINALYSIS W SPECIFIC [id number] 20:31:00 Test Item Value Reference Range Interpretation Comments POCT U SP GRAV (test code = 1.020 mg/dl 1.005-1.025 3255) POCT PH U (test code = 3254) 5 mg/dl 5-8 POCT U LEUK EST (test code = Trace Negative - Negative 3263) POCT U NIT (test code = 3262) Negative Negative - Negative POCT U PROT (test code = Negative Negative - Negative 3259) POCT U GLU (test code = 3256) 50 Negative - Negative POCT U KETONE (test code = Negative Negative - Negative 3258) POCT U UROBILI (test code = 0.2 mg/dl 0.2-1 0) POCT U BILI (test code = Negative Negative - Negative 3261) POCT U BLD (test code = 3257) Trace Negative - Negative POCT U COLOR (test code = 3266) POCT U APPEAR (test code = 3267) [facility] URINALYSIS W SPECIFIC [id number] 20:31:00 Test Item Value Reference Range Interpretation Comments POCT U SP GRAV (test code = 1.020 mg/dl 1.005-1.025 3255) POCT PH U (test code = 3254) 5 mg/dl 5-8 POCT U LEUK EST (test code = Trace Negative - Negative 3263) POCT U NIT (test code = 3262) Negative Negative - Negative POCT U PROT (test code = Negative Negative - Negative 3259) POCT U GLU (test code = 3256) 50 Negative - Negative POCT U KETONE (test code = Negative Negative - Negative 3258) POCT U UROBILI (test code = 0.2 mg/dl 0.2-1 3260) POCT U BILI (test code = Negative Negative - Negative 3261) POCT U BLD (test code = 3257) Trace Negative - Negative POCT U COLOR (test code = 3266) POCT U APPEAR (test code = 3267) [facility] URINALYSIS W SPECIFIC [id number] 20:31:00 Test Item Value Reference Range Interpretation Comments POCT U SP GRAV (test code = 1.020 mg/dl 1.005-1.025 3255) POCT PH U (test code = 3254) 5 mg/dl 5-8 POCT U LEUK EST (test code = Trace Negative - Negative 3263) POCT U NIT (test code = 3262) Negative Negative - Negative POCT U PROT (test code = Negative Negative - Negative 3259) POCT U GLU (test code = 3256) 50 Negative - Negative POCT U KETONE (test code = Negative Negative - Negative 3258) POCT U UROBILI (test code = 0.2 mg/dl 0.2-1 3260) POCT U BILI (test code = Negative Negative - Negative 3261) POCT U BLD (test code = 3257) Trace Negative - Negative POCT U COLOR (test code = 3266) POCT U APPEAR (test code = 3267) [facility] [id number] 22:00:00 Test Item Value Reference Range Interpretation Comments POCT PREG (test code = 1605) Negative On board controls acceptable with C Yes Line (test code = 3574) POCT PREG LOT # (test code = 3575) POCT PREG TEST DATE (test code = 3576) [facility] [id number] 22:00:00 Test Item Value Reference Range Interpretation Comments POCT PREG (test code = 1605) Negative On board controls acceptable with C Yes Line (test code = 3574) POCT PREG LOT # (test code = 3575) POCT PREG TEST DATE (test code = 3576) [facility]
--- NOTE | 2023-05-02 14:33 | RAD REPORT ---
EXAM DESCRIPTION: RAD - Foot Right 3 View - 05/02/2023 2:26 pm CLINICAL HISTORY: PAIN COMPARISON: No comparisons TECHNIQUE: Right foot, 3 views. FINDINGS: No fracture, dislocation or periosteal reaction. No air or foreign body in the soft tissues. IMPRESSION: Negative right foot examination.
--- NOTE | 2023-05-02 15:17 | ER ---
Nurse's Notes [facility] Name: Lloyd Rahman Age: 17 yrs Sex: Female : 2005 Arrival Date: 05/02/2023 Time: 12:49 Bed 12 Private MD: Diagnosis: Pain in right foot Presentation: 05/02 13:24 Chief complaint: Patient states: R heel pain that radiates up to R calve. ph 13:33 Coronavirus screen: Vaccine status: Patient reports receiving the 2nd dose of the covid ph vaccine. Ebola Screen: No symptoms or risks identified at this time. Initial Sepsis Screen: Does the patient meet any 2 criteria? No. Patient's initial sepsis screen is negative. Does the patient have a suspected source of infection? No. Patient's initial sepsis screen is negative. Risk Assessment: Do you want to hurt yourself or someone else? Patient reports no desire to harm self or others. Onset of symptoms was May 02, 2023. 13:33 Method Of Arrival: Ambulatory 13:33 Acuity: SHONDA 4 ph Triage Assessment: 13:25 General: Appears in no apparent distress. comfortable, Behavior is calm, cooperative, ph appropriate for age. Pain: Complains of pain in medial aspect of right heel Pain radiates to right calf. 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 - Social history:: Smoking status: Patient denies any tobacco usage or history of. - Family history:: not pertinent. Screenin:15 [facility] ED Fall Risk Assessment (Adult) Score/Fall Risk Level 0 - 2 = Low Risk ll1 Oriented to surroundings, Maintained a safe environment, Educated pt \T\ family on fall prevention, incl call for assistance when getting out of bed, Hourly rounding (assess needs \T\ fall precautionary measures) done. Abuse screen: Denies threats or abuse. Nutritional screening: No deficits noted. Tuberculosis screening: No symptoms or risk factors identified. Assessment: 13:35 Reassessment: No changes from previously documented assessment. Dr. Hickey in ll1 triage to assess patient. 15:15 Reassessment: No changes from previously documented assessment. Patient and/or family ll1 updated on plan of care and expected duration. Pain level reassessed. Patient is alert, oriented x 3, equal unlabored respirations, skin warm/dry/pink. 15:23 Reassessment: No changes from previously documented assessment. Patient and/or family ll1 updated on plan of care and expected duration. Pain level reassessed. Patient is alert, oriented x 3, equal unlabored respirations, skin warm/dry/pink. Vital Signs: 13:33 BP 117 / 82; Pulse 72; Resp 18; Temp 98.1; Pulse Ox 99% on R/A; Weight 77.11 kg; Height ph 5 ft. 2 in. ; 15:23 BP 139 / 87; Pulse 89; Resp 16; Pulse Ox 99% ; ll1 13:33 Body Mass Index 31.09 (77.11 kg, 157.48 cm) - Percentile 94.6 % ph ED Course: 12:50 Patient arrived in ED. mg5 13:23 Mir Hickey MD is Attending Physician. rt 13:26 Arm band placed on Patient placed in waiting room, Patient notified of wait time. ph 13:33 Triage completed. ph 14:27 Foot Right 3 View XRAY In Process Unspecified. EDMS 15:15 Patient placed in an exam room, on a stretcher. ll1 15:15 Patient has correct armband on for positive identification. Bed in low position. ll1 Provided Education on: n/a. 15:15 No provider procedures requiring assistance completed. Patient did not have IV access ll1 during this emergency room visit. Administered Medications: No medications were administered Medication: 13:33 VIS not applicable for this client. ph Outcome: 15:15 Condition: stable ll1 15:17 Discharge ordered by . rt 15:23 Discharged to home ambulatory, ll1 15:23 Discharge instructions given to patient, Instructed on discharge instructions, follow up and referral plans. Demonstrated understanding of instructions, follow-up care, 15:23 Patient left the ED. ll1 Signatures: Dispatcher [employer] EDTX Ann Park RN RN ph Elizabeth Quinones RN RN ll Mir Hickey MD MD rt Michelle Rose mg5
--- NOTE | 2023-05-02 15:17 | EDPHYS ---
Physician Documentation [facility] Name: Lloyd Rahman Age: 17 yrs Sex: Female : 2005 Arrival Date: 05/02/2023 Time: 12:49 Bed 12 Private MD: ED Physician Mir Hickey HPI: 05/02 17:19 This 17 yrs old Female presents to ER via Ambulatory with complaints of Foot Pain. rt 17:19 Patient presents to the ED with several days of a right heel pain. Does not radiate. It rt is mild in severity, aching in nature. Denies other acute complaints, no aggravating elevating factors.. 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 - Social history:: Smoking status: Patient denies any tobacco usage or history of. - Family history:: not pertinent. ROS: 17:19 MS/extremity: Positive for pain, Negative for injury or acute deformity, rt 17:19 Constitutional: Negative for fever, chills, and weight loss, Cardiovascular: Negative for chest pain, palpitations, and edema, Respiratory: Negative for shortness of breath, cough, wheezing, and pleuritic chest pain, Abdomen/GI: Negative for abdominal pain, nausea, vomiting, diarrhea, and constipation, Skin: Negative for injury, rash, and discoloration, Neuro: Negative for headache, weakness, numbness, tingling, and seizure, Psych: Negative for depression, anxiety, suicide ideation, homicidal ideation, and hallucinations, Exam: 17:19 Constitutional: This is a well developed, well nourished patient who is awake, alert, rt and in no acute distress. Head/Face: Normocephalic, atraumatic. Chest/axilla: Normal chest wall appearance and motion. Nontender with no deformity. No lesions are appreciated. Cardiovascular: Regular rate and rhythm with a normal S1 and S2. No gallops, murmurs, or rubs. Normal PMI, no JVD. No pulse deficits. Respiratory: Lungs have equal breath sounds bilaterally, clear to auscultation and percussion. No rales, rhonchi or wheezes noted. No increased work of breathing, no retractions or nasal flaring. Abdomen/GI: Soft, non-tender, with normal bowel sounds. No distension or tympany. No guarding or rebound. No evidence of tenderness throughout. 17:19 Musculoskeletal/extremity: No focal areas of tenderness in the right foot, skin is normal, pulses, motor, sensation intact. Vital Signs: 13:33 BP 117 / 82; Pulse 72; Resp 18; Temp 98.1; Pulse Ox 99% on R/A; Weight 77.11 kg; Height ph 5 ft. 2 in. ; 15:23 BP 139 / 87; Pulse 89; Resp 16; Pulse Ox 99% ; ll1 13:33 Body Mass Index 31.09 (77.11 kg, 157.48 cm) - Percentile 94.6 % ph MDM: 13:35 Patient medically screened. rt 17:19 Differential diagnosis: Bone spur, musculoskeletal pain, tendinitis. Data reviewed: rt vital signs, nurses notes, radiologic studies. Independent interpretation of the following test(s) in the Emergency Department X-Ray: My interpretation is No fracture seen on interpretation of the x-ray images. Counseling: I had a detailed discussion with the patient and/or guardian regarding the historical points, exam findings, and any diagnostic results supporting the discharge/admit diagnosis, radiology results, the need for outpatient follow up. 05/02 13:41 Order name: Foot Right 3 View XRAY; Complete Time: 14:53 rt Administered Medications: No medications were administered Disposition Summary: 05/02/23 15:17 Discharge Ordered Notes: Location: Home rt Problem: an ongoing problem rt Symptoms: are unchanged rt Condition: Stable rt Diagnosis - Pain in right foot rt Followup: rt - With: Private Physician - When: 2 - 3 days - Reason: Discharge Instructions: - Discharge Summary Sheet rt - Foot Pain rt Forms: - Medication Reconciliation Form rt - Thank You Letter rt - Antibiotic Education rt - Prescription Opioid Use rt - Patient Portal Instructions rt - Leadership Thank You Letter rt Signatures: Dispatcher [employer] Ann Maharaj RN RN ph Mir Hickey MD MD rt
[2023-05-02 15:28] VITALS: TEMP 98.1; O2SAT 99
[2023-05-02 15:30] VITALS: BP 139/87
== END 2023-05-02 15:23 | disposition home or self-care (01) ==
LOC: ER 12:49
DX: M79.671 Pain in right foot (principal)